=== PATIENT | male | born 2000 | race Caucasian/White ===

== ENCOUNTER 2024-01-13 16:14 | Inpatient (IN) | payer MEDICAID ==
[~2024-01-13] VITALS: Ht 177.8 cm; Wt 58.4 kg
[2024-01-13] MEDS ORDERED: diphenhydrAMINE 50MG/ML VIAL IV STA (16:31)
[2024-01-13] MEDS ORDERED: methylPREDNISolone 40MG 1ML VIAL IV ONE (16:35)
[2024-01-13] MEDS ORDERED: FAMOTIDINE 20MG/2ML VIAL IVP ONE (16:35)
[2024-01-13] MEDS: LORazepam 2 MG/ML 1ML VIAL IM STA ×2 (17:18→19:30)
[2024-01-13] MEDS: diphenhydrAMINE 50MG/ML VIAL IM STA (17:18)
[2024-01-13] MEDS: predniSONE 20 MG TAB PO ONE (17:50)
[2024-01-13] MEDS: FAMOTIDINE 20 MG TAB PO ONE (17:50)
[2024-01-13 17:54] LABS: HEMOGLOBIN 16.3 g/dl (13.5-17.5); MEAN CORPUSCULAR HEMOGLOBIN 30.1 pg (27.0-33.0); MEAN CORPUSCULAR VOLUME 88.7 fl (80.0-96.0); PLATELET COUNT, AUTOMATED 404 10^3/uL (150-450); RED BLOOD COUNT 5.41 10^6/uL (4.30-6.10); WHITE BLOOD COUNT 10.2 10^3/uL (4.0-10.0)
[2024-01-13] MEDS ORDERED: HOME MED LIST COMPLETE! XX SCH (18:10)
[2024-01-13 18:12] LABS: ETHYL ALCOHOL (ETHANOL) < 0.003 % (0.000-0.010)
[2024-01-13 18:13] LABS: CPK CREATINE PHOSPHOKINASE 299 U/L (46-171); SALICYLATE LEVEL < 3.0 MG/DL (<30)
[2024-01-13 18:14] LABS: ALBUMIN 4.2 G/DL (3.2-5.2); ALKALINE PHOSPHATASE 163 U/L (46-116); ALT/SGPT 21 U/L (7.0-40); AST/SGOT 20 U/L (<34); BILIRUBIN,DIRECT 0.4 MG/DL (<0.4); BILIRUBIN,TOTAL 1.1 MG/DL (0.3-1.2); BLOOD UREA NITROGEN 18 MG/DL (9-23); CALCIUM LEVEL 9.3 MG/DL (8.5-10.1); CARBON DIOXIDE LEVEL 28 MMOL/L (20-31); CHLORIDE LEVEL 105 MMOL/L (98-107); GLOMERULAR FILTRATION RATE > 60.0 (>60); GLUCOSE, FASTING 103 MG/DL (60-100); POTASSIUM SERUM 4.4 MMOL/L (3.5-5.1); SODIUM LEVEL 139 MMOL/L (136-145); TOTAL PROTEIN 6.9 G/DL (5.7-8.2)
[2024-01-13 18:16] LABS: THYROID STIMULATING HORMONE 1.496 uIU/ML (0.55-4.78)
[2024-01-13 18:55] LABS: BASO # 0.1 10^3/uL (0.0-0.2); BASO % 0.6 % (0.0-1.0); EOS # 0.2 10^3/uL (0.0-0.5); EOS % 1.8 % (0.0-3.0); LYMPH # 1.7 10^3/uL (1.5-5.0); LYMPH % 16.3 % (24.0-44.0); MONO # 0.8 10^3/uL (0.0-0.8); MONO % 7.6 % (2.0-8.0); NEUTROPHILS # 7.6 10^3/uL (1.5-8.5); NEUTROPHILS % 73.4 % (36.0-66.0)
[2024-01-13] MEDS: FAMOTIDINE IV BAG 20 MG in IV 1 EA IV ONE (20:23)
[2024-01-13] MEDS: methylPREDNISolone 125MG 2ML VIAL IV ONE (20:23)
[2024-01-14] MEDS: LORazepam 2 MG/ML 1ML VIAL IM STA (00:10)
[2024-01-14] MEDS: diphenhydrAMINE 50MG/ML VIAL IV PRN (01:30)
[2024-01-14 01:32] VITALS: BP 104/65; TEMP 98.4; O2SAT 95
[2024-01-14] MEDS: LORazepam 2 MG/ML 1ML VIAL IM PRN (02:47)
[2024-01-14] MEDS: NS (Normal Saline) 0.9% 1,000 ML IV SCH (08:13)
[2024-01-14] MEDS: methylPREDNISolone 40MG 1ML VIAL IV SCH (08:14)
[2024-01-14 09:39] LABS: HEMATOCRIT 45.4 % (42.0-52.0); HEMOGLOBIN 15.2 g/dl (13.5-17.5); MEAN CORPUSCULAR HGB CONC 33.5 g/dl (32.0-36.5); MEAN CORPUSCULAR VOLUME 89.5 fl (80.0-96.0); PLATELET COUNT, AUTOMATED 381 10^3/uL (150-450); RED BLOOD COUNT 5.07 10^6/uL (4.30-6.10); WHITE BLOOD COUNT 7.5 10^3/uL (4.0-10.0)
[2024-01-14 10:24] LABS: ALBUMIN 3.9 G/DL (3.2-5.2); ALKALINE PHOSPHATASE 154 U/L (46-116); ALT/SGPT 23 U/L (7.0-40); AST/SGOT 42 U/L (<34); BILIRUBIN,TOTAL 0.7 MG/DL (0.3-1.2); BLOOD UREA NITROGEN 19 MG/DL (9-23); CALCIUM LEVEL 9.7 MG/DL (8.5-10.1); CARBON DIOXIDE LEVEL 27 MMOL/L (20-31); CHLORIDE LEVEL 108 MMOL/L (98-107); CREATININE FOR GFR 0.76 MG/DL (0.70-1.30); GLOMERULAR FILTRATION RATE > 60.0 (>60); GLUCOSE, FASTING 99 MG/DL (60-100); POTASSIUM SERUM 4.3 MMOL/L (3.5-5.1); SODIUM LEVEL 142 MMOL/L (136-145); TOTAL PROTEIN 6.7 G/DL (5.7-8.2)
[2024-01-14 12:08] VITALS: BP 114/70; TEMP 98.4; O2SAT 97
[2024-01-14] MEDS ORDERED: OLANZapine 5 MG TAB PO PRN (17:30)
[2024-01-14] MEDS: OLANZapine INTRAMUSCULAR 10MG VIAL IM PRN (17:59)
[2024-01-15] MEDS: ENOXAPARIN 40MG/0.4ML SYRINGE (J1650 PER 10MG) SC SCH (09:00)
[2024-01-15 12:00] VITALS: BP 134/63; TEMP 98.2
[2024-01-16] MEDS: LORazepam 2 MG/ML 1ML VIAL IM STA (18:48)
[2024-01-16] MEDS: HALOPERIDOL LACTATE 5MG/ML VIAL IM STA (18:49)
[2024-01-17] MEDS: diphenhydrAMINE 50MG/ML VIAL IM PRN (03:45)
[2024-01-17] MEDS ORDERED: LORazepam 2 MG/ML 1ML VIAL IM PRN (16:00)
[2024-01-17] MEDS: HALOPERIDOL LACTATE 5MG/ML VIAL IM SCH (17:47)
[2024-01-17 20:04] VITALS: BP 149/92
[2024-01-20 03:47] VITALS: BP 108/73; TEMP 97.9
[2024-01-20 11:49] VITALS: BP 116/70
[2024-01-20 19:48] VITALS: BP 109/69; TEMP 98.1
[2024-01-21 03:52] VITALS: BP 108/68; TEMP 98.2
[2024-01-21 12:00] VITALS: BP 108/67; TEMP 94.4
[2024-01-21 20:00] VITALS: BP 105/65; TEMP 97.5; O2SAT 93
[2024-01-22 04:01] VITALS: BP 104/65; TEMP 98.1
[2024-01-22 12:00] VITALS: BP 107/66
[2024-01-22 20:00] VITALS: TEMP 97.2
[2024-01-23 12:00] VITALS: BP 126/80; TEMP 98.1; O2SAT 99
[2024-01-23] MEDS: HALOPERIDOL LACTATE 5MG/ML VIAL IM SCH (17:19)
[2024-01-24 12:00] VITALS: BP 83/63; TEMP 98.8; O2SAT 98
[2024-01-24 16:46] VITALS: BP 104/62
[2024-01-25 12:00] VITALS: BP 118/67; TEMP 98.6; O2SAT 97
[2024-01-25 12:38] LABS: BASO # 0.1 10^3/uL (0.0-0.2); BASO % 0.6 % (0.0-1.0); EOS # 0.4 10^3/uL (0.0-0.5); EOS % 3.9 % (0.0-3.0); HEMATOCRIT 43.9 % (42.0-52.0); HEMOGLOBIN 14.7 g/dl (13.5-17.5); LYMPH % 21.2 % (24.0-44.0); MEAN CORPUSCULAR HEMOGLOBIN 29.8 pg (27.0-33.0); MEAN CORPUSCULAR HGB CONC 33.5 g/dl (32.0-36.5); MONO # 0.6 10^3/uL (0.0-0.8); MONO % 6.7 % (2.0-8.0); NEUTROPHILS # 6.4 10^3/uL (1.5-8.5); NEUTROPHILS % 67.3 % (36.0-66.0); PLATELET COUNT, AUTOMATED 303 10^3/uL (150-450); RED BLOOD COUNT 4.93 10^6/uL (4.30-6.10); WHITE BLOOD COUNT 9.5 10^3/uL (4.0-10.0)
[2024-01-25 13:01] LABS: BLOOD UREA NITROGEN 20 MG/DL (9-23); CALCIUM LEVEL 8.8 MG/DL (8.5-10.1); CARBON DIOXIDE LEVEL 30 MMOL/L (20-31); CHLORIDE LEVEL 106 MMOL/L (98-107); CREATININE FOR GFR 0.64 MG/DL (0.70-1.30); GLOMERULAR FILTRATION RATE > 60.0 (>60); GLUCOSE, FASTING 90 MG/DL (60-100); MAGNESIUM LEVEL 1.8 MG/DL (1.8-2.4); POTASSIUM SERUM 4.7 MMOL/L (3.5-5.1); SODIUM LEVEL 139 MMOL/L (136-145)
[2024-01-25 21:40] VITALS: BP 116/68; TEMP 98.4; O2SAT 99
[2024-01-26 04:50] VITALS: TEMP 98.2; O2SAT 93
[2024-01-26 11:50] VITALS: TEMP 98.6; O2SAT 97
[2024-01-26 20:00] VITALS: BP 150/73; TEMP 98.1; O2SAT 93
[2024-01-27 04:00] VITALS: BP 99/60; TEMP 97.8; O2SAT 94
[2024-01-27 05:00] VITALS: BP 102/67
[2024-01-27 11:45] VITALS: BP 113/89; TEMP 98.2; O2SAT 97
[2024-01-27] MEDS: MIRALAX *UNIT DOSE* 17GM PACKET PO PRN (14:49)
[2024-01-27 20:07] VITALS: TEMP 98.2; O2SAT 95
[2024-01-28 04:00] VITALS: BP 95/60; TEMP 97.6; O2SAT 94
[2024-01-28 12:00] VITALS: BP 95/74; TEMP 98.8
[2024-01-28 13:15] VITALS: BP 103/71
[2024-02-01 13:30] VITALS: BP 124/96; TEMP 97.9; O2SAT 96
[2024-02-01] MEDS: HALOPERIDOL LACTATE 5MG/ML VIAL IM PRN (17:01)
[2024-02-01] MEDS ORDERED: PILL CUTTER 1 EACH XX PRN (17:30)
[2024-02-02 14:00] VITALS: BP 105/72
[2024-02-04 06:28] VITALS: BP 97/62; TEMP 98.2; O2SAT 98
[2024-02-05 06:00] VITALS: BP 114/70; TEMP 98.6; O2SAT 93
[2024-02-05 20:00] VITALS: BP 115/74; TEMP 97.2; O2SAT 97
[2024-02-06 04:00] VITALS: BP 106/63; TEMP 97.5; O2SAT 97
[2024-02-07 04:00] VITALS: BP_SYST 103; BP_SYST 111; BP_DIAS 62; BP_DIAS 77; TEMP 97.5; TEMP 97.7; O2SAT 95
[2024-02-09 06:15] VITALS: BP 99/72; TEMP 97.9; O2SAT 99
[2024-02-10 04:00] VITALS: BP 114/60; TEMP 98.1; O2SAT 96
[2024-02-12 06:00] VITALS: BP 96/70; TEMP 98.6; O2SAT 95
[2024-02-13 05:00] VITALS: BP 109/74; TEMP 97.9; O2SAT 98
[2024-02-14 04:46] VITALS: BP 134/78; TEMP 98.4; O2SAT 95
[2024-02-15 05:00] VITALS: BP 104/71; TEMP 98.2; O2SAT 95
[2024-02-17 05:08] VITALS: BP 122/64; TEMP 98; O2SAT 97
[2024-02-18 03:14] VITALS: BP 114/70; TEMP 97.5; O2SAT 95
[2024-02-19 03:38] VITALS: BP 114/70; TEMP 98.1; O2SAT 98
[2024-02-20 04:00] VITALS: BP 114/70; TEMP 98.1; O2SAT 98
[2024-02-23 04:00] VITALS: BP 106/71; TEMP 98.8; O2SAT 93
[2024-02-24 04:00] VITALS: BP 112/68; TEMP 98; O2SAT 95
[2024-02-24 12:00] VITALS: TEMP 99; O2SAT 96
[2024-02-24 15:30] VITALS: BP 124/70; TEMP 97.7; O2SAT 96
[2024-02-24 20:30] VITALS: TEMP 98.4
[2024-02-25 04:44] VITALS: BP 98/72; TEMP 98.4; O2SAT 96
[2024-02-26 05:48] VITALS: BP 104/72; TEMP 98.2; O2SAT 97
[2024-02-27 06:00] VITALS: BP 105/73; TEMP 98.4; O2SAT 99
[2024-02-28 04:46] VITALS: BP 102/56; TEMP 98.1; O2SAT 97
[2024-02-29 03:01] VITALS: BP 116/78; TEMP 98.2; O2SAT 95
[2024-03-01 05:10] VITALS: BP 118/79; TEMP 97.9; O2SAT 92
[2024-03-02 04:00] VITALS: BP 118/76; TEMP 97.7; O2SAT 98
[2024-03-03 03:13] VITALS: BP 109/55; TEMP 98.4; O2SAT 97
[2024-03-04 04:00] VITALS: BP 106/68; TEMP 97.7; O2SAT 97
[2024-03-05 04:00] VITALS: BP 115/75; TEMP 97.5; O2SAT 98
[2024-03-06 05:30] VITALS: BP 112/75; TEMP 97.5; O2SAT 96
[2024-03-07 04:00] VITALS: BP 118/89; TEMP 97.5; O2SAT 98
[2024-03-08 04:00] VITALS: BP 135/87; TEMP 97.6; O2SAT 94
[2024-03-09 04:00] VITALS: BP 112/64; TEMP 97.5; O2SAT 99
[2024-03-09] MEDS: diphenhydrAMINE 25MG CAP PO PRN (11:01)
[2024-03-10 04:00] VITALS: BP 135/59; TEMP 97.9; O2SAT 99
[2024-03-11 07:38] VITALS: BP 123/82; TEMP 97.9; O2SAT 98
[2024-03-12 03:56] VITALS: BP 119/82; TEMP 97.2; O2SAT 100
[2024-03-13 04:00] VITALS: BP 130/72; TEMP 98.8; O2SAT 95
[2024-03-14 03:25] VITALS: BP 126/72; TEMP 97.9; O2SAT 95
[2024-03-14] MEDS: HALOPERIDOL LACTATE 5MG/ML VIAL IM PRN (08:39)
[2024-03-14] MEDS: LORazepam 2 MG/ML 1ML VIAL IM ONE (09:18)
[2024-03-15] VITALS (24 sets, daily range): BP systolic 90–134; BP diastolic 56–92; TEMP 97.9–98.8; O2SAT 95–100
[2024-03-15] MEDS ORDERED: LORazepam 2 MG/ML 1ML VIAL IV PRN (09:30)
[2024-03-15] MEDS: HALOPERIDOL LACTATE 5MG/ML VIAL IM PRN (09:30)
[2024-03-15] MEDS: LORazepam 2 MG/ML 1ML VIAL IM STA (09:35)
[2024-03-15] MEDS ORDERED: LORazepam 2 MG/ML 1ML VIAL IM PRN (09:43)
[2024-03-15] MEDS: OLANZapine INTRAMUSCULAR 10MG VIAL IM ONE (09:45)
[2024-03-15] MEDS ORDERED: chlorproMAZINE INJ 50MG/2ML AMP IM PRN (13:30)
[2024-03-16 03:41] VITALS: BP 112/75; TEMP 97.2; O2SAT 100
[2024-03-16] MEDS: OLANZapine INTRAMUSCULAR 10MG VIAL IM PRN (10:32)
[2024-03-17 04:53] VITALS: BP 102/64; TEMP 98.8; O2SAT 97
[2024-03-18 18:40] VITALS: BP 127/87; TEMP 98.4; O2SAT 99
[2024-03-19 04:00] VITALS: BP 129/83; TEMP 97.6; O2SAT 97
[2024-03-20 04:00] VITALS: BP 145/74; TEMP 98.1; O2SAT 97
[2024-03-21 06:21] VITALS: BP 112/72; TEMP 98.1; O2SAT 100
[2024-03-22 03:11] VITALS: BP 109/79; TEMP 97.7; O2SAT 96
[2024-03-23 03:20] VITALS: BP 118/81; TEMP 97.9; O2SAT 92
[2024-03-23] MEDS ORDERED: ACETAMINOPHEN TAB 650MG DOSE (2X325MG) PO PRN (16:50)
[2024-03-24 04:52] VITALS: BP 101/70; TEMP 98.2; O2SAT 97
[2024-03-25 05:04] VITALS: BP 112/74; TEMP 98.2; O2SAT 96
[2024-03-26 03:20] VITALS: BP 122/80; TEMP 98.2; O2SAT 99
[2024-03-27 04:01] VITALS: BP 104/64; TEMP 98.4; O2SAT 97
[2024-03-28 04:12] VITALS: BP 105/64; TEMP 98.1; O2SAT 99
[2024-03-29 06:00] VITALS: BP 114/68; TEMP 98.2; O2SAT 98
[2024-03-29 18:20] VITALS: TEMP 99.4
[2024-03-29] MEDS: IBUPROFEN 400MG TAB PO ONE (19:55)
[2024-03-30 05:30] VITALS: BP 110/62; TEMP 98.8; O2SAT 98
[2024-03-30 10:18] VITALS: TEMP 98.8
[2024-03-30 16:00] VITALS: TEMP 98.1
[2024-04-02 05:00] VITALS: BP 125/71; TEMP 97.2; O2SAT 97
[2024-04-03 04:23] VITALS: TEMP 97.2
[2024-04-04 04:45] VITALS: BP 114/65; TEMP 98.1; O2SAT 98
[2024-04-05 05:42] VITALS: TEMP 97.5; O2SAT 97
[2024-04-06 04:00] VITALS: BP 99/62; TEMP 98.2; O2SAT 97
[2024-04-07 12:06] LABS: BASO # 0.1 10^3/uL (0.0-0.2); BASO % 0.7 % (0.0-1.0); EOS # 0.3 10^3/uL (0.0-0.5); HEMATOCRIT 45.5 % (42.0-52.0); HEMOGLOBIN 15.6 g/dl (13.5-17.5); LYMPH # 1.5 10^3/uL (1.5-5.0); LYMPH % 21.7 % (24.0-44.0); MEAN CORPUSCULAR HEMOGLOBIN 30.6 pg (27.0-33.0); MEAN CORPUSCULAR HGB CONC 34.3 g/dl (32.0-36.5); MEAN CORPUSCULAR VOLUME 89.2 fl (80.0-96.0); MONO # 0.6 10^3/uL (0.0-0.8); MONO % 8.7 % (2.0-8.0); NEUTROPHILS # 4.4 10^3/uL (1.5-8.5); NEUTROPHILS % 63.5 % (36.0-66.0); PLATELET COUNT, AUTOMATED 256 10^3/uL (150-450); WHITE BLOOD COUNT 6.9 10^3/uL (4.0-10.0)
[2024-04-07 12:38] LABS: ALBUMIN 3.8 G/DL (3.2-5.2); ALKALINE PHOSPHATASE 146 U/L (46-116); ALT/SGPT 25 U/L (7.0-40); AST/SGOT 16 U/L (<34); BILIRUBIN,TOTAL 0.5 MG/DL (0.3-1.2); BLOOD UREA NITROGEN 14 MG/DL (9-23); CARBON DIOXIDE LEVEL 27 MMOL/L (20-31); CHLORIDE LEVEL 106 MMOL/L (98-107); CREATININE FOR GFR 0.69 MG/DL (0.70-1.30); GLOMERULAR FILTRATION RATE > 60.0 (>60); GLUCOSE, FASTING 89 MG/DL (60-100); POTASSIUM SERUM 4.1 MMOL/L (3.5-5.1); SODIUM LEVEL 140 MMOL/L (136-145); TOTAL PROTEIN 6.8 G/DL (5.7-8.2)
[2024-04-09 06:40] VITALS: BP 107/66; TEMP 97.9; O2SAT 96
[2024-04-10 04:00] VITALS: BP 105/60; TEMP 98.2; O2SAT 94
[2024-04-11 03:49] VITALS: BP 103/61; TEMP 97.5; O2SAT 95
[2024-04-12] MEDS ORDERED: PERMETHRIN 5% CREAM 60 GM TOP SCH
[2024-04-12] MEDS: PERMETHRIN 5% CREAM 60 GM TOP ONE (22:45)
[2024-04-13 04:13] VITALS: BP 139/69; TEMP 97.9
[2024-04-13] MEDS: TRIAMCINOLONE ACET 0.1% CREAM 15GM TOP SCH (09:00)
[2024-04-14 03:32] VITALS: BP 115/90; TEMP 97.3; O2SAT 96
[2024-04-15 04:00] VITALS: BP 109/64; TEMP 97.4; O2SAT 98
[2024-04-16 05:40] VITALS: BP 99/67; TEMP 98.4; O2SAT 97
[2024-04-17 04:00] VITALS: BP 100/59; TEMP 97.2; O2SAT 99
[2024-04-18 03:45] VITALS: BP 97/69; TEMP 97.9; O2SAT 96
[2024-04-19 03:45] VITALS: BP 110/67; TEMP 98.1; O2SAT 98
[2024-04-19] MEDS: PERMETHRIN 5% CREAM 60 GM TOP ONE (08:34)
[2024-04-20 04:49] VITALS: BP 115/68; TEMP 97.9; O2SAT 96
[2024-04-21 04:00] VITALS: BP 112/65; TEMP 99.1; O2SAT 97
[2024-04-21 05:30] VITALS: TEMP 98.7
[2024-04-22 06:25] VITALS: BP 111/65; TEMP 98.1
[2024-04-23 05:55] VITALS: BP 108/65; TEMP 98.4
[2024-04-24 06:16] VITALS: BP 112/76; TEMP 98.2
[2024-04-24] MEDS: OLANZapine 10 MG TAB PO SCH (11:51)
[2024-04-24] MEDS ORDERED: OLANZapine INTRAMUSCULAR 10MG VIAL IM SCH (12:00)
[2024-04-27 06:40] VITALS: BP 109/68; TEMP 98.2
[2024-04-27] MEDS: LORazepam 2 MG/ML 1ML VIAL IV STA (18:10)
[2024-04-27] MEDS ORDERED: LORazepam 2 MG TAB PO STA (18:15)
[2024-04-27] MEDS ORDERED: LORazepam 2 MG/ML 1ML VIAL As Ordered ONE (18:15)
[2024-04-27] MEDS: chlorproMAZINE INJ 50MG/2ML AMP IM PRN (18:25)
[2024-04-27] MEDS: LORazepam 2 MG/ML 1ML VIAL IM STA ×3 (18:25→18:40)
[2024-04-27 18:51] LABS: BASO # 0.1 10^3/uL (0.0-0.2); BASO % 0.8 % (0.0-1.0); EOS # 0.6 10^3/uL (0.0-0.5); EOS % 5.6 % (0.0-3.0); HEMATOCRIT 49.8 % (42.0-52.0); HEMOGLOBIN 16.9 g/dl (13.5-17.5); MEAN CORPUSCULAR HEMOGLOBIN 30.7 pg (27.0-33.0); MEAN CORPUSCULAR HGB CONC 33.9 g/dl (32.0-36.5); MEAN CORPUSCULAR VOLUME 90.4 fl (80.0-96.0); MONO # 1.1 10^3/uL (0.0-0.8); MONO % 9.6 % (2.0-8.0); NEUTROPHILS # 5.1 10^3/uL (1.5-8.5); NEUTROPHILS % 46.5 % (36.0-66.0); PLATELET COUNT, AUTOMATED 345 10^3/uL (150-450); RED BLOOD COUNT 5.51 10^6/uL (4.30-6.10); VENOUS BASE EXCESS -11.5 (-2.0-2.0); VENOUS HCO3 9.8 MMOL/L (23.0-27.0); VENOUS O2 SATURATION 99.1 % (60.0-80.0); VENOUS PARTIAL PRESSURE O2 218.3 mmHg (30.0-50.0); VENOUS PH 7.377 UNITS (7.330-7.430); VENOUS STANDARD HCO3 15.9 MMOL/L; VENOUS TOTAL CO2 10.3 MMOL/L (24.0-28.0)
[2024-04-27] MEDS: levETIRAcetam INJection 1,000 MG in D5W 100 ML IV ONE (18:51)
[2024-04-27] MEDS: VALPROATE SOD INJ 1,000 MG in D5W 50 ML IV ONE (19:18)
[2024-04-27 19:25] VITALS: BP 142/90; TEMP 97.4; O2SAT 94
[2024-04-27 19:26] LABS: ALKALINE PHOSPHATASE 179 U/L (46-116); ALT/SGPT 31 U/L (7.0-40); AST/SGOT 22 U/L (<34); BILIRUBIN,TOTAL 0.4 MG/DL (0.3-1.2); BLOOD UREA NITROGEN 12 MG/DL (9-23); CALCIUM LEVEL 9.5 MG/DL (8.5-10.1); CARBON DIOXIDE LEVEL 15 MMOL/L (20-31); CHLORIDE LEVEL 105 MMOL/L (98-107); CREATININE FOR GFR 0.77 MG/DL (0.70-1.30); GLOMERULAR FILTRATION RATE > 60.0 (>60); GLUCOSE, FASTING 94 MG/DL (60-100); POTASSIUM SERUM 4.1 MMOL/L (3.5-5.1); SODIUM LEVEL 141 MMOL/L (136-145); TOTAL PROTEIN 7.6 G/DL (5.7-8.2)
[2024-04-27] MEDS: LR 1,000 ML IV ONE (21:08)
[2024-04-27] MEDS: LIDOCAINE 5% (LIDODERM) PATCH TD SCH (21:19)
[2024-04-28 04:12] VITALS: BP 127/64; TEMP 98.2
[2024-04-28 05:20] LABS: BLOOD UREA NITROGEN 11 MG/DL (9-23); CALCIUM LEVEL 8.6 MG/DL (8.5-10.1); CARBON DIOXIDE LEVEL 26 MMOL/L (20-31); CHLORIDE LEVEL 107 MMOL/L (98-107); CREATININE FOR GFR 0.66 MG/DL (0.70-1.30); GLOMERULAR FILTRATION RATE > 60.0 (>60); GLUCOSE, FASTING 101 MG/DL (60-100); POTASSIUM SERUM 3.2 MMOL/L (3.5-5.1); SODIUM LEVEL 140 MMOL/L (136-145)
[2024-04-28] MEDS: POTASSIUM CHLORIDE 10MEQ SR TABLET PO ONE (06:27)
[2024-04-28 06:40] LABS: VALPROIC ACID (DEPAKOTE) 32.2 UG/ML (50.0-100.0)
[2024-04-28] MEDS: VALPROIC ACID 250MG/5ML SOL ORAL SYRINGE PO SCH (09:15)
[2024-04-29 04:00] VITALS: BP 116/69; TEMP 98; O2SAT 96
[2024-04-29] MEDS ORDERED: flumazeniL 0.5MG/5ML VIAL IV PRN (12:30)
[2024-04-29] MEDS ORDERED: LORazepam 2 MG/ML 1ML VIAL IV ONE (12:30)
[2024-04-29] MEDS: LORazepam 2 MG/ML 1ML VIAL IM ONE (12:40)
[2024-04-29] MEDS ORDERED: LORazepam 2 MG/ML 1ML VIAL IM PRN (13:00)
[2024-04-29] MEDS ORDERED: LORazepam 2 MG/ML 1ML VIAL IV PRN (13:00)
[2024-04-30 04:35] VITALS: BP 105/72; TEMP 98.1; O2SAT 98
[2024-05-01 04:25] VITALS: BP 106/72; TEMP 98.2; O2SAT 98
[2024-05-02 05:10] VITALS: BP 114/72; TEMP 98.2; O2SAT 97
[2024-05-03 04:00] VITALS: BP 116/69; TEMP 98.2; O2SAT 94
[2024-05-04 04:00] VITALS: BP 122/96; TEMP 97.9; O2SAT 98
[2024-05-05] VITALS (13 sets, daily range): BP systolic 102–135; BP diastolic 61–80; TEMP 97.8–98.2; O2SAT 93–100
[2024-05-05] MEDS ORDERED: levETIRAcetam INJection 1,000 MG in D5W 100 ML IV ONE (17:55)
[2024-05-05] MEDS: LORazepam 2 MG/ML 1ML VIAL IV STA ×3 (18:00→18:07)
[2024-05-05] MEDS ORDERED: diphenhydrAMINE 50MG/ML VIAL As Ordered ONE (18:05)
[2024-05-05] MEDS: LEVETIRACETAM 500 MG/5 ML IV ONE (18:29)
[2024-05-05] MEDS: diphenhydrAMINE 50MG/ML VIAL IV STA (18:53)
[2024-05-05 18:54] LABS: BASO # 0.1 10^3/uL (0.0-0.2); BASO % 0.6 % (0.0-1.0); EOS # 0.3 10^3/uL (0.0-0.5); EOS % 3.5 % (0.0-3.0); HEMATOCRIT 46.3 % (42.0-52.0); HEMOGLOBIN 15.7 g/dl (13.5-17.5); LYMPH # 1.9 10^3/uL (1.5-5.0); MEAN CORPUSCULAR HEMOGLOBIN 30.3 pg (27.0-33.0); MEAN CORPUSCULAR HGB CONC 33.9 g/dl (32.0-36.5); MEAN CORPUSCULAR VOLUME 89.4 fl (80.0-96.0); MONO # 0.6 10^3/uL (0.0-0.8); MONO % 7.6 % (2.0-8.0); NEUTROPHILS # 4.9 10^3/uL (1.5-8.5); PLATELET COUNT, AUTOMATED 259 10^3/uL (150-450); RED BLOOD COUNT 5.18 10^6/uL (4.30-6.10); WHITE BLOOD COUNT 7.8 10^3/uL (4.0-10.0)
[2024-05-05 19:05] LABS: ERYTHROCYTE SEDIMENTATION RATE 4 mm/hr (0-15)
[2024-05-05 19:18] LABS: CK-MB VALUE MASS < 1.0 NG/ML (<3.6); VALPROIC ACID (DEPAKOTE) 15.4 UG/ML (50.0-100.0)
[2024-05-05 19:19] LABS: C REACTIVE PROTEIN QUANTITATIV < 0.40 MG/DL (<1.0)
[2024-05-05 19:20] LABS: ALBUMIN 3.5 G/DL (3.2-5.2); ALKALINE PHOSPHATASE 158 U/L (46-116); ALT/SGPT 37 U/L (7.0-40); AST/SGOT 25 U/L (<34); BILIRUBIN,DIRECT 0.2 MG/DL (<0.4); BILIRUBIN,TOTAL 0.6 MG/DL (0.3-1.2); BLOOD UREA NITROGEN 11 MG/DL (9-23); CALCIUM LEVEL 9.2 MG/DL (8.5-10.1); CARBON DIOXIDE LEVEL 24 MMOL/L (20-31); CHLORIDE LEVEL 108 MMOL/L (98-107); CPK CREATINE PHOSPHOKINASE 140 U/L (46-171); CREATININE FOR GFR 0.72 MG/DL (0.70-1.30); GLOMERULAR FILTRATION RATE > 60.0 (>60); GLUCOSE, FASTING 90 MG/DL (60-100); MB/CK RELATIVE INDEX 0.71 (< OR =4); POTASSIUM SERUM 3.7 MMOL/L (3.5-5.1); SODIUM LEVEL 141 MMOL/L (136-145); TOTAL PROTEIN 6.8 G/DL (5.7-8.2)
[2024-05-05 19:23] LABS: PROLACTIN 42.94 NG/ML (2.1-17.7)
[2024-05-05 19:27] LABS: PROCALCITONIN <0.04 ng/ml
[2024-05-05] MEDS: KCL 10MEQ IN D5/0.45NS 1000ML 1,000 ML IV SCH (19:47)
[2024-05-05] MEDS: VALPROATE SOD INJ 500 MG in DEXTROSE 5% (D5W) ADV/MINI-BAG 50 ML IV SCH (19:47)
[2024-05-06] VITALS: BP 107/75; TEMP 98; O2SAT 98
[2024-05-06 04:00] VITALS: BP 102/57; TEMP 97.5; O2SAT 97
[2024-05-06] MEDS: levETIRAcetam INJection 500 MG in DEXTROSE 5% (D5W) MINI-BAG PLU 100 ML IV SCH (05:33)
[2024-05-06] MEDS: levETIRAcetam 250MG TABLET (KEPPRA) PO SCH (09:25)
[2024-05-06] MEDS: VALPROIC ACID 250MG CAP PO SCH (09:39)
[2024-05-06 13:00] VITALS: TEMP 99; O2SAT 96
[2024-05-07 06:30] VITALS: BP 121/85; TEMP 98.2
[2024-05-07 20:30] VITALS: BP 98/59; TEMP 99; O2SAT 100
[2024-05-08 04:43] VITALS: BP 112/57; TEMP 96.8; O2SAT 96
[2024-05-08] MEDS: VALPROIC ACID 500MG/10ML SOL ORAL SYRINGE PO SCH (11:06)
[2024-05-08 12:00] VITALS: BP 118/84; TEMP 97; O2SAT 97
[2024-05-08 19:54] VITALS: BP 127/83; TEMP 98.4
[2024-05-09 04:24] VITALS: BP 108/56; TEMP 98.1; O2SAT 98
[2024-05-09 12:00] VITALS: BP 139/87; TEMP 98.1; O2SAT 98
[2024-05-09 20:00] VITALS: BP 125/71; TEMP 96.8; O2SAT 97
[2024-05-10 04:00] VITALS: BP 107/63; TEMP 97.7; O2SAT 97
[2024-05-11 04:00] VITALS: BP 111/64; TEMP 97.9; O2SAT 97
[2024-05-13 05:50] VITALS: BP 125/77
[2024-05-13] MEDS ORDERED: ACETAMINOPHEN 325 MG TAB PO PRN (12:30)
[2024-05-13] MEDS: PANTOPRAZOLE 40MG TAB (PROTONIX) PO SCH (12:59)
[2024-05-13] MEDS: IBUPROFEN 400MG TAB PO PRN (12:59)
[2024-05-14 04:00] VITALS: BP 104/47; TEMP 97.9; O2SAT 96
[2024-05-16 04:50] VITALS: TEMP 96.8; O2SAT 93
[2024-05-16] MEDS: AUGMENTIN 875 MG TAB PO SCH (21:20)
[2024-05-16] MEDS: DIVALPROEX 500MG *ER* TAB PO SCH (21:21)
[2024-05-17 00:44] LABS: HEMATOCRIT 44.6 % (42.0-52.0); HEMOGLOBIN 15.1 g/dl (13.5-17.5); MEAN CORPUSCULAR HEMOGLOBIN 30.8 pg (27.0-33.0); MEAN CORPUSCULAR HGB CONC 33.9 g/dl (32.0-36.5); MEAN CORPUSCULAR VOLUME 90.8 fl (80.0-96.0); PLATELET COUNT, AUTOMATED 310 10^3/uL (150-450); RED BLOOD COUNT 4.91 10^6/uL (4.30-6.10); WHITE BLOOD COUNT 8.2 10^3/uL (4.0-10.0)
[2024-05-17 01:18] LABS: VALPROIC ACID (DEPAKOTE) 33.8 UG/ML (50.0-100.0)
[2024-05-17 01:19] LABS: ALBUMIN 3.4 G/DL (3.2-5.2); ALKALINE PHOSPHATASE 189 U/L (46-116); ALT/SGPT 17 U/L (7.0-40); AST/SGOT 12 U/L (<34); BILIRUBIN,TOTAL 0.4 MG/DL (0.3-1.2); BLOOD UREA NITROGEN 14 MG/DL (9-23); CALCIUM LEVEL 8.9 MG/DL (8.5-10.1); CARBON DIOXIDE LEVEL 26 MMOL/L (20-31); CHLORIDE LEVEL 111 MMOL/L (98-107); CREATININE FOR GFR 0.69 MG/DL (0.70-1.30); GLOMERULAR FILTRATION RATE > 60.0 (>60); GLUCOSE, FASTING 118 MG/DL (60-100); POTASSIUM SERUM 3.8 MMOL/L (3.5-5.1); SODIUM LEVEL 142 MMOL/L (136-145); TOTAL PROTEIN 6.6 G/DL (5.7-8.2)
[2024-05-17 06:00] VITALS: BP 114/63; TEMP 98.2; O2SAT 91
[2024-05-17] MEDS: DIVALPROEX 250MG *ER* TAB PO SCH (20:18)
[2024-05-18] MEDS: LORazepam 1 MG TAB PO PRN (09:16)
[2024-05-18] MEDS: LORazepam 2 MG/ML 1ML VIAL IM STA ×2 (10:57→13:57)
[2024-05-18] MEDS ORDERED: HALOPERIDOL LACTATE 5MG/ML VIAL As Ordered ONE (13:47)
[2024-05-18] MEDS: HALOPERIDOL LACTATE 5MG/ML VIAL IM ONE (13:57)
[2024-05-18] MEDS: diphenhydrAMINE 50MG/ML VIAL IM ONE (13:57)
[2024-05-19 06:40] VITALS: TEMP 99.2; O2SAT 97
[2024-05-19] MEDS: QUEtiapine FUMARATE 25 MG TAB PO SCH (21:45)
[2024-05-20] MEDS: LORazepam 2 MG/ML 1ML VIAL IV PRN (13:27)
[2024-05-20] MEDS: diphenhydrAMINE 50MG/ML VIAL IM STA (14:09)
[2024-05-20] MEDS: LORazepam 2 MG/ML 1ML VIAL IM STA (14:09)
[2024-05-20] MEDS: HALOPERIDOL LACTATE 5MG/ML VIAL IM STA (14:10)
[2024-05-20] MEDS: QUEtiapine FUMARATE 50MG TAB PO SCH (20:02)
[2024-05-20] MEDS: QUEtiapine FUMARATE 25 MG TAB PO SCH (21:00)
[2024-05-21 04:00] VITALS: BP 100/51; TEMP 98.7; O2SAT 97
[2024-05-21] MEDS: QUEtiapine FUMARATE 50MG TAB PO SCH (09:24)
[2024-05-21] MEDS: LORazepam 2 MG/ML 1ML VIAL IM STA ×2 (10:04→19:18)
[2024-05-21] MEDS: HALOPERIDOL LACTATE 5MG/ML VIAL IM STA (10:05)
[2024-05-21] MEDS: DIVALPROEX 500MG *ER* TAB PO SCH (19:15)
[2024-05-21] MEDS: QUEtiapine FUMARATE 100 MG TAB PO SCH (19:16)
[2024-05-22 06:34] VITALS: BP 137/74; TEMP 99.3; O2SAT 99
[2024-05-25 04:00] VITALS: BP 102/54; TEMP 98.5; O2SAT 94
[2024-05-25] MEDS ORDERED: DIVALPROEX 250MG *ER* TAB PO SCH ×2 (09:00→21:00)
[2024-05-25] MEDS: DIVALPROEX 250MG *ER* TAB PO SCH (20:06)
[2024-05-26 04:00] VITALS: BP 94/53; TEMP 97.4; O2SAT 97
[2024-05-26] MEDS: LORazepam 2 MG/ML 1ML VIAL IM PRN (09:05)
[2024-05-26] MEDS ORDERED: HALOPERIDOL LACTATE 5MG/ML VIAL IM PRN (09:05)
[2024-05-26] MEDS: HALOPERIDOL LACTATE 5MG/ML VIAL IM PRN (10:26)
[2024-05-28 04:00] VITALS: BP 124/62; TEMP 97.4; O2SAT 96
[2024-05-30 04:00] VITALS: BP 124/57; TEMP 98.9; O2SAT 95
[2024-05-31 06:40] VITALS: BP 108/65; TEMP 98.2; O2SAT 93
[2024-06-01 04:00] VITALS: BP 120/69; TEMP 97.3; O2SAT 94
[2024-06-02 04:00] VITALS: BP 116/64; TEMP 97.5; O2SAT 95
[2024-06-04 03:04] VITALS: BP 96/53; TEMP 98.1; O2SAT 97
[2024-06-05 05:03] VITALS: BP 111/61; O2SAT 95
[2024-06-06 03:49] VITALS: BP 105/55; O2SAT 94
[2024-06-07 04:39] VITALS: BP 101/57; TEMP 98.7; O2SAT 93
[2024-06-08 04:59] VITALS: BP 113/64; O2SAT 97
[2024-06-08] MEDS: CALCIPOTRIENE CREAM 0.005% 60GM TOP SCH (09:00)
[2024-06-09 04:49] VITALS: BP 103/55; O2SAT 96
[2024-06-10 04:00] VITALS: BP 116/56; TEMP 98.3; O2SAT 90
[2024-06-11 04:50] VITALS: BP 108/58; TEMP 98.1; O2SAT 93
[2024-06-12 04:22] VITALS: BP 132/64; TEMP 98.6; O2SAT 94
[2024-06-13 05:44] VITALS: BP 113/55; TEMP 97.1; O2SAT 96
[2024-06-14 04:40] VITALS: BP 105/56; TEMP 97; O2SAT 98
[2024-06-15 04:20] VITALS: TEMP 97.2; O2SAT 98
[2024-06-15 06:00] VITALS: BP 141/60
[2024-06-15] MEDS: diphenhydrAMINE 50MG/ML VIAL IM ONE (22:16)
[2024-06-15] MEDS: HALOPERIDOL LACTATE 5MG/ML VIAL IM STA (22:27)
[2024-06-15 23:03] VITALS: O2SAT 93
[2024-06-16 00:15] VITALS: O2SAT 92
[2024-06-16 03:06] VITALS: O2SAT 94
[2024-06-16 04:40] VITALS: BP 102/56; TEMP 98; O2SAT 98
[2024-06-16] MEDS: diphenhydrAMINE 25MG CAP PO ONE (20:07)
[2024-06-16] MEDS: LORazepam 2 MG TAB PO ONE (20:08)
[2024-06-17 04:11] VITALS: BP 121/81; TEMP 97.5; O2SAT 99
[2024-06-18 05:39] VITALS: BP 123/58; TEMP 97.4; O2SAT 95
[2024-06-19 04:08] VITALS: BP 114/59; TEMP 97.3
[2024-06-20 03:30] VITALS: BP 105/67; O2SAT 97
[2024-06-21 04:15] VITALS: BP 105/59; TEMP 97.8; O2SAT 98
[2024-06-21] MEDS: QUEtiapine FUMARATE 50MG TAB PO SCH (08:17)
[2024-06-21] MEDS ORDERED: ISOVUE-370 76% 100ML VIAL As Ordered ONE (14:02)
[2024-06-21 14:25] LABS: BASO # 0.1 10^3/uL (0.0-0.2); BASO % 0.7 % (0.0-1.0); EOS # 0.3 10^3/uL (0.0-0.5); EOS % 4.3 % (0.0-3.0); HEMATOCRIT 46.7 % (42.0-52.0); MEAN CORPUSCULAR HEMOGLOBIN 29.9 pg (27.0-33.0); MEAN CORPUSCULAR HGB CONC 34.3 g/dl (32.0-36.5); MEAN CORPUSCULAR VOLUME 87.1 fl (80.0-96.0); MONO # 0.8 10^3/uL (0.0-0.8); MONO % 11.6 % (2.0-8.0); NEUTROPHILS # 3.9 10^3/uL (1.5-8.5); NEUTROPHILS % 55.1 % (36.0-66.0); PLATELET COUNT, AUTOMATED 319 10^3/uL (150-450); RED BLOOD COUNT 5.36 10^6/uL (4.30-6.10)
[2024-06-21 15:08] LABS: PROCALCITONIN <0.04 ng/ml
[2024-06-21 15:49] LABS: C REACTIVE PROTEIN QUANTITATIV < 0.40 MG/DL (<1.0)
[2024-06-21] MEDS ORDERED: diphenhydrAMINE 50MG/ML VIAL IM ONE (16:30)
[2024-06-21] MEDS ORDERED: diphenhydrAMINE CREAM 30GM TOP PRN (16:30)
[2024-06-21] MEDS: diphenhydrAMINE 50MG CAP PO ONE (16:54)
[2024-06-21] MEDS: SODIUM CHLORIDE NASAL 0.65% SPRAY BTL (OCEAN) SCH (20:00)
[2024-06-22 03:40] VITALS: BP 122/56; TEMP 97.9; O2SAT 94
[2024-06-23 04:00] VITALS: BP 118/67; TEMP 98; O2SAT 94
[2024-06-23] MEDS: diphenhydrAMINE 50MG CAP PO STA (10:46)
[2024-06-23] MEDS: CEPHALEXIN 500 MG CAP PO SCH (12:37)
[2024-06-24 04:00] VITALS: BP 122/64; TEMP 97.3; O2SAT 97
[2024-06-25 04:00] VITALS: BP 114/62; TEMP 97.6; O2SAT 96
[2024-06-25] MEDS: NEOSPORIN TOP OINT 15GM TOP SCH (12:22)
[2024-06-26 04:30] VITALS: BP 102/58; TEMP 98.4; O2SAT 96
[2024-06-27 06:46] VITALS: BP 117/63; TEMP 98.1; O2SAT 94
[2024-06-27 20:52] VITALS: BP 128/64; TEMP 98.8; O2SAT 97
[2024-06-28 05:15] VITALS: TEMP 97.2; O2SAT 97
[2024-06-29 06:56] VITALS: BP 113/70; TEMP 99.1; O2SAT 98
[2024-06-30 05:16] VITALS: BP 120/78; TEMP 98.9; O2SAT 97
[2024-06-30] MEDS: diphenhydrAMINE 50MG CAP PO ONE (21:16)
[2024-07-01 04:20] VITALS: BP 106/59; TEMP 98.1; O2SAT 94
[2024-07-01] MEDS: diphenhydrAMINE CREAM 30GM TOP PRN (09:32)
[2024-07-02 03:35] VITALS: BP 108/59; TEMP 97.3; O2SAT 97
[2024-07-03 04:00] VITALS: BP 106/60; TEMP 97.6; O2SAT 96
[2024-07-04 04:00] VITALS: BP 136/69; TEMP 97; O2SAT 95
[2024-07-04] MEDS: BACITRACIN OINTMENT 30GM TUBE TOP SCH (09:00)
[2024-07-04] MEDS: KETOCONAZOLE 2% CREAM TOP SCH (18:22)
[2024-07-05 07:52] VITALS: BP 117/70; TEMP 97.7; O2SAT 98
[2024-07-06 04:48] VITALS: BP 114/55; TEMP 97.2; O2SAT 96
[2024-07-07 04:00] VITALS: BP 116/79; TEMP 97.7; O2SAT 91
[2024-07-08 04:00] VITALS: BP 114/64; TEMP 97.2; O2SAT 95
[2024-07-10 04:00] VITALS: BP 113/70; TEMP 98.2; O2SAT 98
[2024-07-10 06:34] VITALS: BP 108/62; TEMP 98.2; O2SAT 98
[2024-07-10] MEDS: CLOBETASOL PROP 0.05% OINT 30 GM TOP SCH (21:42)
[2024-07-11 04:00] VITALS: BP 138/72; TEMP 96.8; O2SAT 99
[2024-07-11 06:54] LABS: HEMATOCRIT 45.3 % (42.0-52.0); HEMOGLOBIN 15.2 g/dl (13.5-17.5); MEAN CORPUSCULAR HEMOGLOBIN 29.6 pg (27.0-33.0); MEAN CORPUSCULAR HGB CONC 33.6 g/dl (32.0-36.5); MEAN CORPUSCULAR VOLUME 88.1 fl (80.0-96.0); PLATELET COUNT, AUTOMATED 273 10^3/uL (150-450); RED BLOOD COUNT 5.14 10^6/uL (4.30-6.10); WHITE BLOOD COUNT 6.1 10^3/uL (4.0-10.0)
[2024-07-11 07:23] LABS: BLOOD UREA NITROGEN 20 MG/DL (9-23); CALCIUM LEVEL 9.2 MG/DL (8.5-10.1); CARBON DIOXIDE LEVEL 28 MMOL/L (20-31); CHLORIDE LEVEL 105 MMOL/L (98-107); GLOMERULAR FILTRATION RATE > 60.0 (>60); GLUCOSE, FASTING 87 MG/DL (60-100); POTASSIUM SERUM 4.7 MMOL/L (3.5-5.1); SODIUM LEVEL 140 MMOL/L (136-145)
[2024-07-12 04:00] VITALS: TEMP 97.3; O2SAT 92
[2024-07-13 05:55] VITALS: BP 119/60; TEMP 98.1; O2SAT 98
[2024-07-13] MEDS: OLANZapine INTRAMUSCULAR 10MG VIAL IM ONE (20:49)
[2024-07-13] MEDS: diphenhydrAMINE 50MG/ML VIAL IM STA (20:49)
[2024-07-14 04:00] VITALS: BP 124/64; TEMP 97.4; O2SAT 95
[2024-07-15 04:00] VITALS: BP 134/68; TEMP 97.6; O2SAT 96
[2024-07-15] MEDS: diphenhydrAMINE 25MG CAP PO PRN (15:26)
[2024-07-16 04:00] VITALS: BP 136/89; TEMP 98.7; O2SAT 96
[2024-07-17 04:00] VITALS: BP 117/59; TEMP 97.4; O2SAT 95
[2024-07-18 05:00] VITALS: TEMP 98.7
[2024-07-19 04:00] VITALS: BP 99/54; TEMP 97.5; O2SAT 92
[2024-07-19] MEDS: PAIN RELIEF TOP SCH (16:02)
[2024-07-19] MEDS: NEOSPORIN TOP SCH (16:02)
[2024-07-20 05:38] VITALS: BP 115/67; TEMP 97.6; O2SAT 95
[2024-07-22 06:35] VITALS: BP 97/57; TEMP 98.6; O2SAT 94
[2024-07-23 06:30] VITALS: BP 106/57; TEMP 97.2; O2SAT 97
[2024-07-24 06:35] VITALS: BP 112/62; TEMP 97.3; O2SAT 93
[2024-07-25 04:00] VITALS: BP 90/72; TEMP 96.8; O2SAT 96
[2024-07-26 04:00] VITALS: BP 105/56; TEMP 96.5; O2SAT 93
[2024-07-27 04:00] VITALS: BP 114/60; TEMP 97.8; O2SAT 97
[2024-07-27 05:00] VITALS: BP 114/60; TEMP 97.8; O2SAT 97
[2024-07-28 06:30] VITALS: BP 118/69; TEMP 98; O2SAT 91
[2024-07-29 05:00] VITALS: BP 109/68; TEMP 97.8; O2SAT 99
[2024-07-30 06:35] VITALS: BP 107/61; TEMP 97.9; O2SAT 93
[2024-07-30 17:49] VITALS: TEMP 97.6
[2024-07-31 06:30] VITALS: BP 129/84; TEMP 97; O2SAT 95
[2024-08-01 06:20] VITALS: BP 109/69; TEMP 97.5; O2SAT 98
[2024-08-02 03:48] VITALS: BP 128/58
[2024-08-03 03:46] VITALS: BP 123/65; TEMP 98; O2SAT 96
[2024-08-04 05:17] VITALS: BP 115/75; TEMP 97.3; O2SAT 93
[2024-08-05 01:32] VITALS: BP 136/86
[2024-08-05 02:47] VITALS: BP 107/72
[2024-08-05 07:35] VITALS: BP 135/64; TEMP 97.8; O2SAT 95
[2024-08-06 04:34] VITALS: BP 132/82; TEMP 96.9; O2SAT 92
[2024-08-07 03:51] VITALS: BP 120/77; TEMP 96.5; O2SAT 95
[2024-08-08 06:09] VITALS: BP 123/84; TEMP 97; O2SAT 98
[2024-08-09 05:30] VITALS: BP 114/60; TEMP 97.3; O2SAT 96
[2024-08-10 05:30] VITALS: BP 108/73; TEMP 97.9; O2SAT 92
[2024-08-11 04:20] VITALS: BP 100/62; TEMP 97.7; O2SAT 96
[2024-08-12 04:30] VITALS: BP 103/56; TEMP 99.5; O2SAT 97
[2024-08-12] MEDS ORDERED: DIVALPROEX 250MG *ER* TAB PO SCH (09:00)
[2024-08-12] MEDS: QUEtiapine FUMARATE 200 MG TAB PO SCH (09:05)
[2024-08-12] MEDS: DIVALPROEX 500 MG TAB PO SCH (10:49)
[2024-08-12] MEDS: QUEtiapine FUMARATE 100 MG TAB PO SCH (20:10)
[2024-08-13 04:45] VITALS: BP 118/71; TEMP 98; O2SAT 98
[2024-08-14 05:07] VITALS: BP 141/90; TEMP 97.8; O2SAT 97
[2024-08-15 06:00] VITALS: BP 97/58; TEMP 97.6; O2SAT 92
[2024-08-16 04:00] VITALS: BP 125/78; TEMP 97.5; O2SAT 99
[2024-08-17 06:26] VITALS: BP 126/58; TEMP 97.8; O2SAT 97
[2024-08-19 04:27] VITALS: BP 123/77; TEMP 97.5; O2SAT 97
[2024-08-20 06:23] VITALS: BP 101/56; TEMP 97.2; O2SAT 95
[2024-08-21 05:30] VITALS: BP 119/76; TEMP 97.4; O2SAT 97
[2024-08-22 05:16] VITALS: BP 118/67; TEMP 97.5; O2SAT 93
[2024-08-23 05:51] VITALS: BP 129/64; TEMP 97.9; O2SAT 95
[2024-08-24 05:00] VITALS: BP 112/76; TEMP 97.7; O2SAT 97
[2024-08-25 04:49] VITALS: BP 110/55; TEMP 96.7; O2SAT 98
[2024-08-25] MEDS: DIVALPROEX 125 MG TAB PO SCH (20:15)
[2024-08-25] MEDS: DIVALPROEX 500 MG TAB PO SCH (20:15)
[2024-08-26 05:17] VITALS: BP 111/61; TEMP 96.7; O2SAT 99
[2024-08-26] MEDS ORDERED: HALOPERIDOL LACTATE 5MG/ML VIAL IM STA (16:25)
[2024-08-26] MEDS ORDERED: LORazepam 2 MG/ML 1ML VIAL IM STA (16:26)
[2024-08-26] MEDS ORDERED: diphenhydrAMINE 50MG/ML VIAL IV STA (16:26)
[2024-08-27 04:47] VITALS: BP 124/69; TEMP 96.8; O2SAT 96
[2024-08-28 04:15] VITALS: BP 99/55; TEMP 97.2; O2SAT 98
[2024-08-29 05:30] VITALS: BP 127/58; TEMP 99.1; O2SAT 99
[2024-08-30 05:30] VITALS: BP 116/66; TEMP 97.7; O2SAT 96
[2024-08-31 04:18] VITALS: BP 105/55; TEMP 97; O2SAT 99
[2024-09-01 06:25] VITALS: BP 109/64; TEMP 97.4; O2SAT 98
[2024-09-02 05:30] VITALS: BP 125/60; TEMP 97.2; O2SAT 100
[2024-09-03 03:30] VITALS: BP 124/70; TEMP 97; O2SAT 93
[2024-09-04 05:28] VITALS: BP 124/74; TEMP 97; O2SAT 95
[2024-09-05 04:50] VITALS: BP 104/66; TEMP 97; O2SAT 98
[2024-09-06 05:10] VITALS: BP 107/69; TEMP 96.8; O2SAT 96
[2024-09-07 06:45] VITALS: TEMP 97.5; O2SAT 97
[2024-09-07] MEDS: SENOKOT S TAB PO PRN (16:04)
[2024-09-08 06:30] VITALS: BP 92/60; TEMP 96.7; O2SAT 94
[2024-09-09 04:00] VITALS: BP 119/79; TEMP 97.2; O2SAT 96
[2024-09-10 03:32] VITALS: BP 112/62; TEMP 97.8; O2SAT 95
[2024-09-11 04:20] VITALS: BP 108/56; O2SAT 97
[2024-09-12 04:45] VITALS: BP 112/60; TEMP 97.5; O2SAT 96
[2024-09-13 05:30] VITALS: TEMP 98.3; O2SAT 99
[2024-09-14 06:00] VITALS: BP 116/79; TEMP 97.9; O2SAT 98
[2024-09-15 05:32] VITALS: BP 108/55; TEMP 98.4; O2SAT 98
[2024-09-17 04:00] VITALS: BP 107/71; TEMP 96.5; O2SAT 95
[2024-09-19 05:15] VITALS: BP 113/62; TEMP 96.8; O2SAT 98
[2024-09-20 06:45] VITALS: BP 100/58; TEMP 97.7; O2SAT 94
[2024-09-21 03:46] VITALS: BP 101/55; TEMP 97.5; O2SAT 97
[2024-09-22 06:20] VITALS: BP 92/51; TEMP 97.2; O2SAT 96
[2024-09-23 06:28] VITALS: BP 117/68; TEMP 96.9; O2SAT 91
[2024-09-24 05:45] VITALS: BP 114/60; TEMP 96.7; O2SAT 95
[2024-09-25 04:25] VITALS: BP 119/71; TEMP 97.7; O2SAT 96
[2024-09-26 06:44] VITALS: BP 108/56; TEMP 97.3; O2SAT 95
[2024-09-27 06:00] VITALS: BP 115/54; TEMP 96.7; O2SAT 96
[2024-09-28 05:00] VITALS: BP 115/50; TEMP 97.3; O2SAT 96
[2024-09-29 04:42] VITALS: BP 120/61; TEMP 98; O2SAT 96
[2024-09-30 06:00] VITALS: BP 92/54; TEMP 97; O2SAT 93
[2024-10-01 04:55] VITALS: BP 106/65; TEMP 97.2; O2SAT 94
[2024-10-02 06:43] VITALS: BP 90/52; TEMP 97.2; O2SAT 96
[2024-10-03 04:00] VITALS: BP 112/73; TEMP 97.1; O2SAT 95
[2024-10-04 06:00] VITALS: BP 94/50; TEMP 97.1; O2SAT 97
[2024-10-06 05:54] VITALS: BP 115/68; TEMP 97.5; O2SAT 100
[2024-10-07 04:44] VITALS: BP 114/64; TEMP 97; O2SAT 94
[2024-10-08 06:09] VITALS: BP 103/59; TEMP 97; O2SAT 98
[2024-10-09 04:30] VITALS: BP 108/64; TEMP 97; O2SAT 96
[2024-10-10 05:44] VITALS: BP 128/81; TEMP 96.8; O2SAT 99
[2024-10-11 05:49] VITALS: BP 142/80; TEMP 97.1; O2SAT 98
[2024-10-12 04:34] VITALS: BP 110/61; TEMP 97.5; O2SAT 96
[2024-10-13 05:45] VITALS: BP 116/71; TEMP 97; O2SAT 97
[2024-10-13] MEDS: QUEtiapine FUMARATE 50MG TAB PO SCH (20:39)
[2024-10-13] MEDS: QUEtiapine FUMARATE 200 MG TAB PO SCH (20:39)
[2024-10-14 06:19] VITALS: BP 99/58; TEMP 97.8; O2SAT 97
[2024-10-15 06:19] VITALS: BP 112/72; TEMP 97.8; O2SAT 96
[2024-10-16 03:32] VITALS: BP 112/54; TEMP 98.5; O2SAT 96
[2024-10-17 05:20] VITALS: BP 100/57; TEMP 97.3; O2SAT 95
[2024-10-18 05:31] VITALS: BP 112/75; TEMP 96.8; O2SAT 96
[2024-10-19 04:30] VITALS: BP 130/86; TEMP 96.8; O2SAT 94
[2024-10-20 04:30] VITALS: BP 130/75; TEMP 98; O2SAT 98
[2024-10-21 03:17] VITALS: BP 131/82; TEMP 98; O2SAT 99
[2024-10-22 04:00] VITALS: BP 114/74; TEMP 97.3; O2SAT 97
[2024-10-23 03:15] VITALS: BP 118/73; TEMP 98.1; O2SAT 96
[2024-10-24 05:51] VITALS: BP 124/84; TEMP 97.1; O2SAT 95
[2024-10-25 05:45] VITALS: BP 119/72; TEMP 97.3; O2SAT 97
[2024-10-26 04:55] VITALS: BP 97/54; TEMP 97; O2SAT 95
[2024-10-27 04:43] VITALS: BP 98/54; TEMP 96.8; O2SAT 97
[2024-10-28 06:00] VITALS: BP 103/71; TEMP 97; O2SAT 96
[2024-10-29 06:00] VITALS: BP 110/57; TEMP 97.8; O2SAT 95
[2024-10-30 06:00] VITALS: BP 112/61; TEMP 97.6; O2SAT 93
[2024-10-31 04:30] VITALS: BP 118/80; TEMP 97; O2SAT 95
[2024-11-01 05:30] VITALS: BP 107/55; TEMP 97.2; O2SAT 90
[2024-11-02 03:57] VITALS: BP 116/53; TEMP 98.3; O2SAT 96
[2024-11-03 04:01] VITALS: BP 98/63; TEMP 97.6; O2SAT 98
[2024-11-03 19:33] VITALS: BP 91/48; TEMP 97.9; O2SAT 93
[2024-11-04 03:15] VITALS: BP 106/56; TEMP 97.6; O2SAT 96
[2024-11-05 04:15] VITALS: BP 108/55; TEMP 98.1; O2SAT 97
[2024-11-06 03:20] VITALS: BP 108/51; TEMP 97.7; O2SAT 97
[2024-11-07 06:00] VITALS: BP 116/61; TEMP 97.9; O2SAT 97
[2024-11-08 06:27] VITALS: BP 120/76; TEMP 98.6; O2SAT 97
[2024-11-09 04:15] VITALS: BP 118/56; TEMP 98.1; O2SAT 97
[2024-11-10 06:40] VITALS: BP 99/55; TEMP 97.5; O2SAT 98
[2024-11-11 04:36] VITALS: BP 119/70; TEMP 97; O2SAT 99
[2024-11-12 04:00] VITALS: BP 119/65; TEMP 98.5; O2SAT 95
[2024-11-13 05:42] VITALS: BP 117/59; TEMP 97.5; O2SAT 98
[2024-11-14 06:20] VITALS: BP 134/72; TEMP 97.9; O2SAT 99
[2024-11-15 04:00] VITALS: BP 118/63; TEMP 97.5; O2SAT 98
[2024-11-16 06:00] VITALS: BP 105/52; TEMP 97.7; O2SAT 90
[2024-11-16] MEDS ORDERED: HALOPERIDOL LACTATE 5MG/ML VIAL IM PRN (12:20)
[2024-11-17 04:30] VITALS: BP 111/57; TEMP 99.1; O2SAT 100
[2024-11-18 05:45] VITALS: BP 118/71; TEMP 98.5; O2SAT 98
[2024-11-19 04:08] VITALS: BP 108/62; TEMP 97; O2SAT 98
[2024-11-19] MEDS: diphenhydrAMINE 25MG CAP PO ONE (18:27)
[2024-11-20 04:00] VITALS: BP 138/83; TEMP 97.1; O2SAT 96
[2024-11-21 06:00] VITALS: BP 125/62; TEMP 98.2; O2SAT 93
[2024-11-22 04:08] VITALS: BP 118/76; TEMP 96.8; O2SAT 99
[2024-11-23 04:40] VITALS: BP 114/69; TEMP 97; O2SAT 95
[2024-11-25] MEDS ORDERED: PANT40TA29 PO (11:23)
[2024-11-25] MEDS ORDERED: HALO5TAB33 PO (11:23)
[2024-11-25] MEDS ORDERED: DEPA1TAB PO (11:23)
[2024-11-25] MEDS ORDERED: NEOM28.32 EX (11:23)
[2024-11-25] MEDS ORDERED: DIVA500T94 PO (11:23)
[2024-11-25] MEDS ORDERED: QUET200T2 PO ×3 (11:23→13:02)
[2024-11-25] MEDS ORDERED: DOCU8.6T PO (11:23)
[2024-11-25] MEDS ORDERED: QUET50TA4 PO (11:23)
[2024-11-26 03:34] VITALS: BP 122/68; TEMP 97.6; O2SAT 98
[2024-11-27 05:54] VITALS: BP 104/60; TEMP 98.4; O2SAT 97
[2024-11-27] MEDS ORDERED: ONDANSETRON 4MG 2ML VIAL IM PRN (13:15)
[2024-11-27] MEDS ORDERED: HALOPERIDOL LACTATE 5MG/ML VIAL IM PRN (14:10)
[2024-11-28 06:00] VITALS: BP 113/55; TEMP 98.2; O2SAT 93
== END 2024-11-28 08:20 | DRG 757 ==
LOC: M ED 16:14 → EDBD 16:14 → M ED INP 20:02 → M MSPAV 01-14 01:16 → M ICU 05-05 18:08 → M MSPAV 05-06 08:16
PROVIDERS: ADMIT Preventive Medicine Undersea and Hyperbaric Medicine; ATTEND Internal Medicine
DX: F84.0 Autistic disorder (principal); G40.89 Other seizures; F79 Unspecified intellectual disabilities; K04.7 Periapical abscess without sinus; R45.1 Restlessness and agitation; K21.9 Gastro-esophageal reflux disease without esophagitis; L30.9 Dermatitis, unspecified; R21 Rash and other nonspecific skin eruption; T78.40XA Allergy, unspecified, initial encounter; Z88.5 Allergy status to narcotic agent; Z88.8 Allergy status to other drugs, medicaments and biological substances; Z91.018 Allergy to other foods; L51.8 Other erythema multiforme; L98.499 Non-pressure chronic ulcer of skin of other sites with unspecified severity